=== PATIENT | female | born 1950 | race African-American/Black ===

== ENCOUNTER → 2017-07-28 | Outpatient (CLI) | payer OTHER ==
[~2017-07-28] MED LIST: ACCUNEB SO1.25 MG/1; ALBUTEROL2.5 MG/31 INH; ASPIR 8181 MG PO; ASPIRIN81 M2; AVAPRO 150 MG150 M1 PO; CARISOPRODOL 3350 MG PO; DILTIAZEM 24HR360 M1 PO; DILTIAZEM ER240 M1; DULERA 100 MCG/13 GM; DULERA 200 MCG/13 GM INH; FELDENE20 MG PO; HYDROCHLOROTHIA25 M1 PO; HYDROCODONE-AP1 EAC6 PO; HYZAAR 100-251 EACH PO; IMITREX100 MG PO; PANTOPRAZOLE SO40 M1 PO; POTASSIUM CHLO10 ME1 PO; PREDNISONE 5 MG5 M1 PO; SYNTHROID150 MCG PO; VENTOLIN HFA 1818 GM INH; XANAX 0.5 MG0.5 MG PO; ZOFRAN ODT4 MG PO
== END ==
LOC: RAD 00:25
DX: Z12.31 Encounter for screening mammogram for malignant neoplasm of breast (principal)

== ENCOUNTER → 2017-08-27 | Outpatient (CLI) | payer OTHER | LOC: CAT 11:02 | DX: G31.9 Degenerative disease of nervous system, unspecified (principal) ==

== ENCOUNTER 2017-12-01 05:37 | Inpatient (IN) | payer OTHER ==
[~2017-12-01] VITALS: Ht 165.1 cm; Wt 82.6 kg
--- NOTE | ~2017-12-01 | O ---
[facility] [place] [address] OPERATIVE REPORT Name: SHARYN AGUILAR Room #: 431-P [facility] IN M.R.#: [id number] Admission: 12/01/17 Attend Phys: Van Alston MD Discharge: Date of : 48 Report #: [id number] THIS REPORT FOR: //name// CC: FAM unknown Van Alston DATE OF SERVICE: 12/01/2017 PREOPERATIVE DIAGNOSIS: Right hip osteoarthritis. POSTOPERATIVE DIAGNOSIS: Right hip osteoarthritis. PROCEDURE: Right total hip arthroplasty. SURGEON: Van Alston MD PEANUT SEPARATOR: MAGO [place] ANESTHESIA: General endotracheal. IMPLANTS: [employer]haliwal [employer] Nephew size 13 standard offset Synergy press-fit stem, a size 52 R3 acetabular cup with a size 36 +0 cobalt chrome head. ESTIMATED BLOOD LOSS: 100 mL. COMPLICATIONS: None. SPECIMENS: None. CONDITION UPON LEAVING THE OPERATING ROOM: Stable. INDICATIONS FOR PEANUT SEPARATOR: Throughout the case, extensive retraction and manipulation of the hip was required. This was afforded to me by my ortho assistant. INDICATION FOR PROCEDURE: The patient is a 67-year-old female with severe right hip osteoarthritis. She had failed conservative treatment for this and after discussion with her, she elected for right total hip arthroplasty. DESCRIPTION OF OPERATIVE PROCEDURE: Risks, benefits, alternatives, complications were discussed in detail with the patient including but not limited to risk of anesthesia; risk of damage to nerves, arteries, blood vessels; risk for infection, bleeding; risk for instability, leg length discrepancy, dislocation and need for reoperation. Informed consent was obtained from the patient. The right hip was appropriately marked in the preoperative holding area. IV Ancef was given for preoperative antibiotics. She was brought to the operating room and placed in the supine position on [facility] [address] [place] [address] OPERATIVE REPORT Name: JEFFSHARYN VILA Room #: 431-P [facility] IN M.R.#: [id number] Admission: 12/01/17 Attend Phys: Van Alston MD Discharge: Date of : 48 Report #: [id number] operating room table. General endotracheal anesthesia was induced without complication. She was then placed in the left lateral decubitus position with the right hip uppermost. Right hip and lower extremity were prepped and draped in normal sterile fashion. Timeout was performed properly identifying the patient and procedure as well as the instrumentation and implants. All in the operating room were in agreement. Right hip and lower extremity were prepped and draped in normal sterile fashion. A standard posterior approach to the hip was made with a 10 blade through the skin. Dissection was taken down the fascia with Bovie cautery and a Rebollar elevator was used to clean off the fascia. Fresh 10 blade was used to make a fascial incision. This was taken proximally and distally with curved White scissor. Charnley retractor was placed. Trochanteric bursa was taken down with Bovie cautery. The piriformis tendon was identified, tagged and taken down with Bovie. Short external rotators were also taken down with Bovie cautery. Capsulotomy was made and capsule ends were tagged for later repair. Hip was dislocated and there was extensive osteoarthritic change of the femoral head. Femoral neck cut was made 1 cm proximal to lesser trochanter based on preoperative templating and the femoral head was removed. Deep acetabular retractors were placed. Labrum was removed sharply. Pulvinar was removed with Bovie cautery. Acetabulum was then sequentially reamed up to a size 52; at which point, there was excellent bleeding cancellous bone. This was trialed with a size 51 cup trial and found to have a good fit. A final size 52 R3 acetabular cup was then placed and seated. One acetabular screw was placed for backup fixation and the polyethylene liner for 36 head was placed. Attention was then turned to the femur. This was reamed and broached up to a size 13; at which point, the size 13 broach was stable. This was trialed with a standard offset neck with a 36 +0 head. Hip was reduced, taken through range of motion, found to be stable, found to have equal leg lengths. Hip was dislocated and the broach was removed. The final size 13 standard offset Synergy press-fit stem was placed. This was then trialed with a 36 +0 head. Hip was reduced, taken through range of motion, found to be stable, found to have equal leg lengths. Hip was dislocated one last time and a final size 36 +0 cobalt chrome head was placed. Hip was reduced, taken through range of motion, found to be stable, found to have equal leg lengths. Periarticular injection consisting of morphine, ropivacaine, epinephrine and Toradol was placed around the hip joint and tissues. A gram of vancomycin was placed deep in the hip joint. The piriformis and capsule were repaired with 0 FiberWire. Fascia was closed with 0 Vicryl, skin was closed with 2-0 Vicryl, 3-0 Monocryl and a TERRY dressing was applied. The patient tolerated this procedure well and went to the recovery room under the care of Anesthesia postoperatively. <ELECTRONICALLY SIGNED> By: Van Alston MD 12/04/17 0822 [id number] 1724 Van Alston MD /nt
[2017-12-01 11:15] VITALS: BP 132/93
[2017-12-01 18:00] VITALS: BP 127/85
[2017-12-01 20:51] VITALS: BP 125/85
[2017-12-02 05:40] LABS: HEMATOCRIT 30.4 % (37.0-47.0); HEMOGLOBIN 10.1 gm/dL (12.0-15.0); MCH 28.3 pg (26.0-34.0); MCHC 33.2 g/dL (28.0-37.0); MCV 85.2 fL (80.0-100.0); RBC 3.56 mil/uL (4.20-5.00); RDW 13.3 % (10.5-14.5); WBC 8.7 thou/uL (4.0-11.0)
[2017-12-02 05:44] VITALS: BP 111/67
[2017-12-02 07:14] VITALS: BP 113/69
[2017-12-02 15:27] VITALS: BP 111/72
[2017-12-02 20:00] VITALS: BP 112/68
[2017-12-03 04:28] VITALS: BP 115/75
[2017-12-03 06:03] LABS: HEMATOCRIT 26.6 % (37.0-47.0); HEMOGLOBIN 9.2 gm/dL (12.0-15.0); MCH 28.5 pg (26.0-34.0); MCHC 34.5 g/dL (28.0-37.0); MCV 82.5 fL (80.0-100.0); RBC 3.22 mil/uL (4.20-5.00); RDW 13.4 % (10.5-14.5); WBC 7.2 thou/uL (4.0-11.0)
[2017-12-03 07:30] VITALS: BP 110/70
[2017-12-03 16:12] VITALS: BP 97/55
[2017-12-03 20:38] VITALS: BP 110/59
[2017-12-04 04:24] VITALS: BP 102/66
[2017-12-04 05:34] LABS: HEMATOCRIT 25.9 % (37.0-47.0); MCH 28.9 pg (26.0-34.0); MCHC 34.6 g/dL (28.0-37.0); MCV 83.6 fL (80.0-100.0); RBC 3.1 mil/uL (4.20-5.00); RDW 13.2 % (10.5-14.5)
[2017-12-04 10:25] VITALS: BP 110/70
[2017-12-04 11:06] VITALS: BP 110/70
== END 2017-12-04 12:58 | disposition home or self-care (01) | DRG 470 ==
LOC: 4E 05:37 → TBA 05:37 → PRE 05:39 → EDSTATUS 13:12 → OR 13:12 → PRE 13:14 → 4E 18:01
PROVIDERS: Orthopaedic Surgery
PROC: 0SR901A Replacement of Right Hip Joint with Metal Synthetic Substitute, Uncemented, Open Approach (ICD-10-PCS; principal; 2017-12-01)
DX: M16.11 Unilateral primary osteoarthritis, right hip (principal)
CPT/HCPCS: 10783; 50010; 50101; 50382; 50414; 51771; 53000; 53078; 53367; 54118; 56524; 56527; 56528; 56530; 57095; 62110; 62900; 70005

== ENCOUNTER → 2018-07-29 | Outpatient (CLI) | payer OTHER | LOC: RAD 10:29 | DX: Z12.31 Encounter for screening mammogram for malignant neoplasm of breast (principal) ==

== ENCOUNTER → 2018-09-08 | Outpatient (CLI) | payer OTHER ==
[~2018-09-08] VITALS: Ht 165.1 cm; Wt 80.7 kg
[~2018-09-08] MED LIST changes: +BREO ELLIPTA 11 EACH INH; +LIPITOR10 MG PO
--- NOTE | 2018-09-09 08:14 | P ---
[facility] [place] [address] PROCEDURE REPORT Name: JEFFSHARYN VILA Room #: REG [facility]#: [id number] Admission: 09/08/18 ������������������ Attend Phys: Dex Espinoza MD Discharge: ������������������ Date of : 48 Report #: [id number] THIS REPORT FOR: //name// CC: Lj Baker DO Dex Espinoza BRIEF HISTORY: The patient is a 68-year-old woman for average-risk screening colonoscopy. Last colon exam was approximately 10 years ago. PREOPERATIVE DIAGNOSIS: Average-risk screening colonoscopy. POSTOPERATIVE DIAGNOSES: 1. Moderate sigmoid diverticulosis coli. 2. Internal hemorrhoids. MEDICATIONS: Deep sedation with propofol per anesthesia. SPECIMENS: None. ESTIMATED BLOOD LOSS: None. PROCEDURE: Colonoscopy to cecum and terminal ileum. FINDINGS: Prior to propofol sedation, the procedure of colonoscopy was reviewed with the patient as well as potential risks and its complications. She indicates she understands and desires to proceed. DESCRIPTION OF PROCEDURE: With the patient in the left lateral decubitus position, digital examination was completed, which revealed no abnormalities. Subsequently, the Olympus video colonoscope was introduced in the rectum, advanced under direct vision to the cecum. Done with minimal difficulty. The cecum was identified by the ileocecal valve and the appendiceal orifice. I was able to advance the tip of the scope to the mouth of the ileocecal valve. However, due to looping of the scope, I could not cross the ileocecal valve. Villi were seen. At that point, the scope was slowly withdrawn and careful circumferential views were obtained. Upon slow withdrawal of the scope, the prep was excellent. The mucosa was within normal limits. Normal vascular pattern, normal light reflex. No inflammatory neoplastic changes were seen. A few scattered diverticula were seen in the proximal colon. There was no endoscopic evidence of diverticulitis. The scope was withdrawn. Throughout the remainder of the colon, there was noted to be again normal mucosa. There was moderate diverticular disease in the sigmoid colon, without endoscopic evidence of diverticulitis. The scope was withdrawn in the rectum. No abnormalities were seen. Upon retroflexion, small internal hemorrhoids were seen. The scope was withdrawn. The patient tolerated the procedure well. [facility] [address] [place] [address] PROCEDURE REPORT Name: SHARYN AGUILAR Room #: REG [facility]#: [id number] Admission: 09/08/18 ������������������ Attend Phys: Dex Espinoza MD Discharge: ������������������ Date of : 48 Report #: [id number] CONDITION OF THE PATIENT UPON DISCHARGE: Following the procedure, the patient drowsy, aroused, conversant and will be discharged home when fully ambulatory. INSTRUCTIONS TO THE PATIENT AND FAMILY AT THE TIME OF DISCHARGE: No neoplastic changes were seen. She does not have history of colon polyps nor is her family history. She is considered average risk and suggest followup colon exam in 10 years. In addition, the patient was noted to have melanosis on her last exam. She notes that since the last colonoscopy, she has been using fiber and MiraLax with good results. There was no evidence of melanosis on today's exam. Last colonoscopy was nearly 10 years ago. Withdrawal time from the cecum was 9 minutes and 19 seconds. ��������������������������������������������� <ELECTRONICALLY SIGNED> ���������������������������������������� By: Dex Espinoza MD ��������������������������������������������� 09/09/18 0814 0917 0003 Dex Espinoza MD /nt
== END | disposition home or self-care (01) ==
LOC: GI 07:15 → RAD 13:29
DX: Z12.11 Encounter for screening for malignant neoplasm of colon (principal); K57.30 Diverticulosis of large intestine without perforation or abscess without bleeding; K64.8 Other hemorrhoids; I10 Essential (primary) hypertension; E78.00 Pure hypercholesterolemia, unspecified; J45.909 Unspecified asthma, uncomplicated; G43.909 Migraine, unspecified, not intractable, without status migrainosus; K21.9 Gastro-esophageal reflux disease without esophagitis; Z96.651 Presence of right artificial knee joint; Z90.49 Acquired absence of other specified parts of digestive tract; Z96.641 Presence of right artificial hip joint; Z79.899 Other long term (current) drug therapy; Z98.890 Other specified postprocedural states
CPT/HCPCS: 62110; 62900

== ENCOUNTER → 2019-07-31 | Outpatient (CLI) | payer OTHER | LOC: RAD 08:40 | DX: Z12.31 Encounter for screening mammogram for malignant neoplasm of breast (principal); N64.89 Other specified disorders of breast ==

== ENCOUNTER 2019-12-13 20:26 | Emergency (ER) | payer OTHER ==
[~2019-12-13] VITALS: Ht 165.1 cm; Wt 84.8 kg
[2019-12-13 20:32] VITALS: BP 146/89
== END 2019-12-13 22:39 | disposition home or self-care (01) ==
LOC: ER 20:26
DX: S93.512A Sprain of interphalangeal joint of left great toe, initial encounter (principal); I10 Essential (primary) hypertension; J45.909 Unspecified asthma, uncomplicated; K21.9 Gastro-esophageal reflux disease without esophagitis; G43.909 Migraine, unspecified, not intractable, without status migrainosus; Z79.899 Other long term (current) drug therapy; Z90.49 Acquired absence of other specified parts of digestive tract; Z90.89 Acquired absence of other organs; W23.0XXA Caught, crushed, jammed, or pinched between moving objects, initial encounter; Y93.89 Activity, other specified; Y92.89 Other specified places as the place of occurrence of the external cause; Y99.8 Other external cause status

== ENCOUNTER → 2020-08-01 | Outpatient (CLI) | payer OTHER | LOC: BC 09:28 | PROVIDERS: ATTEND Obstetrics & Gynecology | DX: Z12.31 Encounter for screening mammogram for malignant neoplasm of breast (principal) ==

== ENCOUNTER → 2021-02-20 | Outpatient (CLI) | payer OTHER | LOC: CAT 08:23 | PROVIDERS: ATTEND Family Medicine | DX: Z13.6 Encounter for screening for cardiovascular disorders (principal); I25.10 Atherosclerotic heart disease of native coronary artery without angina pectoris ==

== ENCOUNTER → 2021-02-25 | Outpatient (CLI) | payer OTHER | LOC: SJCVC 10:07 | PROVIDERS: ATTEND Internal Medicine Cardiovascular Disease | DX: R94.31 Abnormal electrocardiogram [ECG] [EKG] (principal); I11.9 Hypertensive heart disease without heart failure; R93.1 Abnormal findings on diagnostic imaging of heart and coronary circulation; R06.00 Dyspnea, unspecified; E78.00 Pure hypercholesterolemia, unspecified; R60.9 Edema, unspecified; Z79.899 Other long term (current) drug therapy; Z79.82 Long term (current) use of aspirin ==

== ENCOUNTER 2021-03-18 20:45 | Emergency (ER) | payer OTHER ==
[~2021-03-18] VITALS: Ht 165.1 cm; Wt 82.6 kg
[2021-03-18 21:19] LABS: ABSOLUTE NEUTROPHILS 6.6 thou/uL (1.4-8.2); BASOPHILS 0.5 % (0.0-2.0); EOSINOPHILS 1.7 % (0.0-3.0); HEMATOCRIT 35.6 % (37.0-47.0); HEMOGLOBIN 11.4 gm/dL (12.0-15.0); LYMPHOCYTES 20.6 % (24.0-44.0); MCH 27.4 pg (26.0-34.0); MCHC 31.9 g/dL (28.0-37.0); MCV 85.8 fL (80.0-100.0); MONOCYTES 7.2 % (1.0-8.0); PLATELET COUNT 290 thou/uL (150-400); RBC 4.15 mil/uL (4.20-5.00); RDW 13.8 % (10.5-14.5); WBC 9.4 thou/uL (4.0-11.0)
[2021-03-18 21:28] LABS: CALCIUM 8.8 mg/dL (8.5-10.1); CREATININE 1.5 mg/dL (0.6-1.0); POTASSIUM 3.3 mmol/L (3.5-5.1)
[2021-03-18 21:37] LABS: ALBUMIN 3.7 g/dL (3.4-5.0); TOTAL BILIRUBIN 0.3 mg/dL (0.2-1.0); TOTAL PROTEIN 7.5 g/dL (6.4-8.2)
[2021-03-18 22:55] VITALS: BP 151/67
--- NOTE | 2021-03-19 06:50 | EKG ---
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1950 Requested By: Amor Shahid Order Number: [id number] MD: Pedro Cruz Measurements Intervals [place] Rate: 60 P: 47 CO: 178 QRS: -58 QRSD: 99 T: 37 QT: 479 QTc: 479 Interpretive Statements Sinus rhythm Left anterior fascicular block Abnormal R-wave progression, early transition Probable left ventricular hypertrophy Borderline T abnormalities, anterior leads Compared to ECG 09/11/2008 11:17:14 No significant changes Electronically Signed On 03-19-2021 6:50:39 CDT by Pedro Cruz [email or web address] <ELECTRONICALLY SIGNED> By: Pedro Cruz MD, [facility] 03/19/21 0650 56 56 Pedro Cruz MD, [facility] /EPI
--- NOTE | 2021-03-20 07:21 | EKG ---
[facility] [place] [address] ELECTROCARDIOGRAM REPORT Name: SHARYN AGUILARH 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 : 1950 Requested By: Amor Shahid Order Number: [id number] MD: Pedro Cruz Measurements Intervals [place] Rate: 63 P: 36 MD: 177 QRS: -56 QRSD: 100 T: 20 QT: 474 QTc: 486 Interpretive Statements Sinus rhythm Ventricular premature complex Abnormal R-wave progression, early transition Probable left ventricular hypertrophy Borderline T abnormalities, anterior leads Baseline wander in lead(s) V2 Compared to ECG 09/11/2008 11:17:14 Ventricular premature complex(es) now present T-wave abnormality still present Electronically Signed On 03-20-2021 7:21:41 CDT by Pedro Cruz [email or web address] <ELECTRONICALLY SIGNED> By: Pedro Cruz MD, [facility]ACC 03/20/21720 55 55 Pedro Cruz MD, FAC /EPI
== END 2021-03-18 22:57 | disposition short-term general hospital (02) ==
LOC: ER 20:45
PROVIDERS: Emergency Medicine
DX: I71.01 Dissection of thoracic aorta (principal); I10 Essential (primary) hypertension; J45.909 Unspecified asthma, uncomplicated; G43.909 Migraine, unspecified, not intractable, without status migrainosus; K21.9 Gastro-esophageal reflux disease without esophagitis; Z90.89 Acquired absence of other organs; Z90.49 Acquired absence of other specified parts of digestive tract; Z98.890 Other specified postprocedural states; Z79.82 Long term (current) use of aspirin; Z79.51 Long term (current) use of inhaled steroids; Z79.891 Long term (current) use of opiate analgesic; Z79.899 Other long term (current) drug therapy; Z79.1 Long term (current) use of non-steroidal anti-inflammatories (NSAID)

== ENCOUNTER → 2021-04-21 | Outpatient (CLI) | payer OTHER | LOC: SJCVC 13:23 | PROVIDERS: ATTEND Internal Medicine Cardiovascular Disease | DX: R94.31 Abnormal electrocardiogram [ECG] [EKG] (principal); I71.9 Aortic aneurysm of unspecified site, without rupture; I71.00 Dissection of unspecified site of aorta; I10 Essential (primary) hypertension; E78.00 Pure hypercholesterolemia, unspecified; R60.9 Edema, unspecified; R06.00 Dyspnea, unspecified; R93.1 Abnormal findings on diagnostic imaging of heart and coronary circulation; Z98.890 Other specified postprocedural states; Z88.8 Allergy status to other drugs, medicaments and biological substances; Z79.82 Long term (current) use of aspirin; Z79.899 Other long term (current) drug therapy; J45.909 Unspecified asthma, uncomplicated; K21.9 Gastro-esophageal reflux disease without esophagitis; E78.5 Hyperlipidemia, unspecified; I44.4 Left anterior fascicular block ==

== ENCOUNTER → 2021-05-05 | Outpatient (CLI) | payer OTHER ==
[~2021-05-05] MED LIST changes: +LEVO-T100 MCG PO; +MIRALAX119 GM PO
== END ==
LOC: SJCVCIMAG 14:17
PROVIDERS: ATTEND Internal Medicine Cardiovascular Disease
DX: I71.00 Dissection of unspecified site of aorta (principal); I71.9 Aortic aneurysm of unspecified site, without rupture; I10 Essential (primary) hypertension; R60.9 Edema, unspecified; R93.1 Abnormal findings on diagnostic imaging of heart and coronary circulation; M19.90 Unspecified osteoarthritis, unspecified site; K21.9 Gastro-esophageal reflux disease without esophagitis; K44.9 Diaphragmatic hernia without obstruction or gangrene; E78.5 Hyperlipidemia, unspecified; Z98.890 Other specified postprocedural states; Z79.82 Long term (current) use of aspirin; Z79.899 Other long term (current) drug therapy

== ENCOUNTER 2021-05-07 05:42 | Inpatient (IN) | payer OTHER ==
[~2021-05-07] VITALS: Ht 165.1 cm; Wt 77.1 kg
[~2021-05-07 05:42] MED LIST changes: -LEVO-T100 MCG PO; -MIRALAX119 GM PO
[2021-05-07 06:09] VITALS: BP 151/101
[2021-05-07 06:45] LABS: ABSOLUTE NEUTROPHILS 4.2 thou/uL (1.4-8.2); BASOPHILS 0.7 % (0.0-2.0); EOSINOPHILS 0.4 % (0.0-3.0); HEMATOCRIT 29.1 % (37.0-47.0); HEMOGLOBIN 9.6 gm/dL (12.0-15.0); LYMPHOCYTES 14.5 % (24.0-44.0); MCH 28.9 pg (26.0-34.0); MCHC 32.9 g/dL (28.0-37.0); MCV 87.9 fL (80.0-100.0); MONOCYTES 7.1 % (1.0-8.0); PLATELET COUNT 328 thou/uL (150-400); POLYS 77.3 % (36.0-66.0); RBC 3.31 mil/uL (4.20-5.00); RDW 15.5 % (10.5-14.5); WBC 5.4 thou/uL (4.0-11.0)
[2021-05-07 06:52] LABS: CALCIUM 8.9 mg/dL (8.5-10.1); CREATININE 0.9 mg/dL (0.6-1.0); POTASSIUM 3.6 mmol/L (3.5-5.1)
[2021-05-07 07:03] LABS: ALBUMIN 3.3 g/dL (3.4-5.0); MAGNESIUM 1.5 mg/dL (1.8-2.4); TOTAL BILIRUBIN 0.6 mg/dL (0.2-1.0); TOTAL PROTEIN 7.5 g/dL (6.4-8.2)
--- NOTE | 2021-05-07 07:20 | EKG ---
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 : 1950 Requested By: Lj Hughes Order Number: [id number] MD: Pedro Cruz Measurements Intervals [place] Rate: 95 P: 53 NH: 152 QRS: -57 QRSD: 116 T: 57 QT: 417 QTc: 525 Interpretive Statements Sinus rhythm Probable left atrial enlargement Nonspecific IVCD with LAD Inferior infarct, old Abnrm T, consider ischemia, anterolateral lds Compared to ECG 03/18/2021 20:57:30 Intraventricular conduction delay now present Myocardial infarct finding now present Possible ischemia now present Left anterior fascicular block no longer present T-wave abnormality no longer present Electronically Signed On 05-07-2021 7:20:34 [employer] by Pedro Cruz [email or web address] <ELECTRONICALLY SIGNED> By: Pedro Cruz MD, FACC 05/07/21 0720 0555 0555 Pedro Cruz MD, [facility] /EPI
[2021-05-07 09:03] LABS: URINE BILIRUBIN NEGATIVE (Negative); URINE BLOOD TRACE (Negative); URINE CLARITY CLEAR; URINE COLOR YELLOW; URINE GLUCOSE-RANDOM* NEGATIVE (Negative); URINE KETONES NEGATIVE (Negative); URINE NITRITE-REFLEX NEGATIVE (Negative); URINE PROTEIN (DIPSTICK) 1+ (Negative); URINE UROBILINOGEN 0.2 E.U./dl (0.2-1.0)
[2021-05-07 09:04] LABS: URINE LEUKOCYTES-REFLEX 1+ (Negative)
[2021-05-07 09:35] LABS: BACTERIA-REFLEX 1-9 Few /HPF (None Seen); CASTS None Seen /LPF (None Seen); SQUAMOUS 4-10 Moderate /LPF (0-3); URINE RBC 1-2 Rare /HPF (NONE SEEN); URINE WBC-REFLEX 0-5 Rare /HPF (0-5)
[2021-05-07 09:36] LABS: CRYSTALS None Seen /LPF (None Seen)
[2021-05-07 12:41] VITALS: BP 138/86
[2021-05-07 16:10] VITALS: BP 144/93
[2021-05-07 19:58] VITALS: BP 147/95
[2021-05-07 20:39] VITALS: BP 142/90
[2021-05-07 21:46] VITALS: BP 145/98
[2021-05-08 06:12] LABS: CALCIUM 8.4 mg/dL (8.5-10.1); CREATININE 1.2 mg/dL (0.6-1.0); POTASSIUM 3.8 mmol/L (3.5-5.1)
[2021-05-08 06:14] LABS: HEMATOCRIT 28.4 % (37.0-47.0); HEMOGLOBIN 9.2 gm/dL (12.0-15.0); MCH 28.6 pg (26.0-34.0); MCHC 32.3 g/dL (28.0-37.0); MCV 88.5 fL (80.0-100.0); RBC 3.2 mil/uL (4.20-5.00); RDW 15.6 % (10.5-14.5); WBC 6.2 thou/uL (4.0-11.0)
--- NOTE | 2021-05-08 06:44 | NUR ---
PATIENT ADMITTED FOR NAUSEA AND VOMIT. PATIENT AOX4 MAKES NEEDS KNOWN. PATIENT NEEDS MINIMUM ASSISTANCE WITH ADL, BED MOBILITY, TRANSFER AND TOILETING.PAIN, NAUSEA AND VOMIT CONTROLLED THIS SHIFT. PATIENT AMBULATES SLOWLY SLOWLY WITH STABLE GAITS. FALL PRECAUTION IN PLACE.PATIENT IN BED ASLEEP AT THIS TIME BREATHING REGULAR AND UNLABOURED.
[2021-05-08 07:58] VITALS: BP 136/80
--- NOTE | 2021-05-08 15:21 | NUR ---
PT ADMITTED RELATED TO N/V, ABDOMINAL PAIN, AND DEHYDRATION. CM REVIEWED CHART AND SPOKE WITH CARE TEAM. CM MET WITH PT AT BEDSIDE THIS DAY. PT APPEARD TO BE A&O X4. CM ROLE INTRODUCED. PT INDICATED SHE RESIDES IN A HOUSE WITH HER SPOUSE. PT INDICATED NO STEPS INSIDE OR OUTSIDE OF THE HOME. 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 HER HELPS WITH CARES AND HER CHILDREN FIX MEALS. PATIENT INDICATED A RECENT PREVIOUS HOSPITAL STAY DISCHARGE WITH HH BUT DOES NOT REMEMBER THE NAME OF THE COMPANY. PT INDICATED SHE PLANS TO RETURN HOME ONCE MEDICALLY STABLE AND WISHED TO RESUME HH SERVICES. CM FOLLOWING REGARDING DC PLANNING.
[2021-05-08 16:55] VITALS: BP 135/98
[2021-05-08 20:06] VITALS: BP 150/98
--- NOTE | 2021-05-09 03:17 | NUR ---
PAIN AND NAUSEA CONTROLLED THIS SHIFT. PATIENT REQUESTED TO SLEEP ON THE RECLINER. FALL PRECAUTION IN PLACE. PATIENT IN BED ASLEEP AT THIS TIME BREATHING REGULAR AND UNLABOURED.
[2021-05-09 07:00] VITALS: BP 146/100
[2021-05-09] MEDS ORDERED: LEVO-T100 MCG PO (11:49)
[2021-05-09] MEDS ORDERED: MIRALAX119 GM PO (11:56)
--- NOTE | 2021-05-09 16:34 | NUR ---
CARE TEAM INDICATED PT MAY BE MEDICALLY STABLE TO DC OVER WEEKEND. PT NEEDS TO TOLERATE DIET PTD. PT HAD BEEN ON SERVICE WITH [facility] STAFF DEVELOPMENT NURSE. PT TO RESUME SERVICES WITH THEM UPON DC. THEY ARE AWARE OF ADMISSION AND CLINICAL INFO FAXED. ONCE PT IS DC READY FAX ORDERS TO: [facility] AT .
[2021-05-09 20:05] VITALS: BP 132/97
--- NOTE | 2021-05-10 04:23 | NUR ---
assumed care approx 1900 evening 05/09. pt alert and oriented x4, appropriate and cooperative. pt up to bsc to have bm x2 tonight. pt appears to be sleeping soundly. bed alarm on and call light in reach. will continue to monitor.
[2021-05-10 08:07] VITALS: BP 140/98
[2021-05-10 09:47] VITALS: BP 140/98
--- NOTE | 2021-05-10 18:12 | NUR ---
Pt A & O x4. Pt is SBA with cares and ADLs. Pt received medications as ordered. Pt VS stable. Pt is room air. Pt received PRN medications per pt request. Pt is able to make needs known
[2021-05-10 20:59] VITALS: BP 142/78
--- NOTE | 2021-05-11 03:55 | NUR ---
PT IS A/O X4 AND IS UP WITH ASSISTANCE TO THE BSC. ROOM AIR. VSS AFEBRILE. C/O PAIN. PRN PAIN MEDICATION GIVEN DIRECTED. NPO SINCE MIDNIGHT AWAITING PROCEDURE IN THE AM. FALL PRECAUTIONS IN PLACE, CALL LIGHT IS WITHIN REACH.
[2021-05-11 08:14] VITALS: BP 141/98
[2021-05-11 16:53] LABS: HEMATOCRIT 29.9 % (37.0-47.0); HEMOGLOBIN 9.5 gm/dL (12.0-15.0); MCH 28.1 pg (26.0-34.0); MCHC 31.8 g/dL (28.0-37.0); MCV 88.3 fL (80.0-100.0); RBC 3.39 mil/uL (4.20-5.00); RDW 15.8 % (10.5-14.5); WBC 8.3 thou/uL (4.0-11.0)
[2021-05-11 17:07] LABS: INR 1.45; PROTIME 15.5 Seconds (10.5-12.1)
[2021-05-11 17:08] LABS: ALBUMIN 3.3 g/dL (3.4-5.0); CALCIUM 8.4 mg/dL (8.5-10.1); CREATININE 1.2 mg/dL (0.6-1.0); TOTAL BILIRUBIN 0.9 mg/dL (0.2-1.0); TOTAL PROTEIN 6.9 g/dL (6.4-8.2)
[2021-05-11 17:18] VITALS: BP 133/83
[2021-05-11 17:19] VITALS: BP 133/83
--- NOTE | 2021-05-11 18:21 | NUR ---
Resummed care from overnight shift this am. Client was in room sitting on chair and resting. Client's daughter was present in room visiting at this time. Client presented calm and quiet and was alert and oriented x4. Client stated no pain upon initial assessment and took all medications whole. Later voiced general abdominal pain at 1645. PRN tylenol given for this which decreased pain to 0/10. Client IV site was intact and no redness of edema noted. Client given IV push furosemide by Morenita CRAFT this am in addition to scheduled medications. All medications tolerated well. Client is to be NPO after midnight- has been notified of this. Client has no concerns at this time.
[2021-05-11 21:04] VITALS: BP 119/76
--- NOTE | 2021-05-12 03:18 | NUR ---
ASSUMED CARE AT 1900, PT REMAINS ON RT THERAPY, REPORTS EXCESSIVE SPUTUM WITH COUGHING, NPO AFTER MIDNIGHT, COMPLIANT TO TX, NO ADVERSE REACTION NOTED, TOILETED NEEDED, INTERMITTENTLY SLEPT THROUGH THE NIGHT, WILL CONTINUE TO MONITOR.
[2021-05-12 08:17] VITALS: BP 140/87
[2021-05-12 12:00] LABS: HEMATOCRIT 29.7 % (37.0-47.0); HEMOGLOBIN 9.4 gm/dL (12.0-15.0); MCH 28.3 pg (26.0-34.0); MCHC 31.8 g/dL (28.0-37.0); MCV 88.9 fL (80.0-100.0); RBC 3.34 mil/uL (4.20-5.00); WBC 7.8 thou/uL (4.0-11.0)
--- NOTE | 2021-05-12 13:47 | NUR ---
ASSUMED PT CARE THIS AM. PT A&O4, ABLE TO MAKE NEEDS KNOWN. PATIENT REPORTING BACK PAIN, NEW PAIN MEDICATION ORDERED PER EMAR. IV REMAINS PATENT. POTASSIUM WAS LOW, PHYSICIAN NOTIFIED AND ORDER RECEIVED FOR IV POTASSIUM REPLACEMENT. PATIENT IS ON ROOM AIR. PATIENT IS ON ROOM AIR. FALL PRECAUTIONS ARE IN PLACE, CALL LIGHT WITHIN REACH.
[2021-05-12 17:38] VITALS: BP 133/91
[2021-05-12 19:42] VITALS: BP 130/82
--- NOTE | 2021-05-13 04:58 | NUR ---
ASSUMED PT CARE THIS PM.PT IS ALERT AND ORIENTED X4. PT WAS INFORNED ABOUT BEING NPO VERBALIZED UNDERSTANDING. PT HAS TRACE EDMA ON FEET. MEDS WERE GIVEN ORDERS. PT IS ON RA. FALL PRECAUTIONS IN PLACE. WILL CONTINUE TO NONITOR,
[2021-05-13 06:42] LABS: ALBUMIN 2.8 g/dL (3.4-5.0); CALCIUM 8.2 mg/dL (8.5-10.1); MAGNESIUM 1.7 mg/dL (1.8-2.4); POTASSIUM 3.8 mmol/L (3.5-5.1); TOTAL PROTEIN 6.5 g/dL (6.4-8.2)
[2021-05-13 09:08] LABS: HAV IgM AB (ANTI-HAV IgM) Negative (Negative); HEPATITIS B SURFACE AG Negative (Negative)
--- NOTE | 2021-05-13 14:08 | NUR ---
ASSUMED PT CARE THIS AM. PT HAD EGD THIS AM. PT IS ALERT & ORIENTED X4. PT HAS IV SITE ON LAC SALINE LOCKED. PT IS UP WITH ASSIST X1 TO THE BEDSIDE COMMODE. PT AT THE BEDSIDE. PT IS CURRENTLY EATING LUNCH ON THE BED, BED ON THE LOWEST POSITION, SIDE RAILS UP, CALL LIGHT WITHIN REACH. WILL CONTINUE TO MONITOR PT. FOLLOW POC.
[2021-05-13 14:14] VITALS: BP 140/98
--- NOTE | 2021-05-13 16:51 | NUR ---
PT HAD EGD DONE THIS DAY. HOSPITALIST INDICATED THAT PT IS MEDICALLY STABLE TO DC HOME THIS DAY. VENANCIO VELASCO MET WITH PT AND SPOUSE AT BEDSIDE THIS DAY AND INDICATED THE ABOVE. THEY INDICATED THAT PHYSICIAN INDICATED THAT PT WOULD BE STARTED ON ABX AND GET A LAXATIVE AND THAT THEY WEREN'T ANTICIAPTING DC HOME THIS DAY. THIS WAS CONVEYED TO HOSPITALIST. PT IS TO STAY ANTICIPATE POSSIBLE DC HOME TOMORROW WITH [facility].
[2021-05-13 20:01] VITALS: BP 135/89
--- NOTE | 2021-05-14 04:31 | NUR ---
ASSUMED PT CARE THIS PM. PT IS ALERT AND ORIENTED X4. PT HAS +3 EDEMA ON THE LEFT FOOT. PT C/O PAIN WHICH WAS MANAGED BY PRN PAIN MEDS. PT DID NOT C/O N/V. PT IS ON RA. MEDS GIVEN PER EMAR ORDERS. NO OTHER CONCERNS WERE VERBALIZED. FALL PRECAUTIONS IN PLACE. WILL CONTINUE TO MONITOR.
[2021-05-14 07:44] VITALS: BP 133/84
[2021-05-14 09:39] VITALS: BP 140/98
[2021-05-14 11:57] VITALS: BP 140/98
[2021-05-14 12:10] LABS: HEPATITIS C VIRUS AB <0.1
[2021-05-14 12:23] VITALS: BP 140/98
--- NOTE | 2021-05-14 13:52 | NUR ---
Assumed pt care at 7am. Pt in and out of bed with assist x1. Assessment completed.vss.Pt c/o generalized pain and requested for norco. Dr Norwood notified.order noted. Am meds given with pain med and well tolerated. Gus hose applied bilaterally for swollen feet and ankle. Dc summary compile and reviewed with pt and spouse. Saline lock dc'd.Pt left per wc at 1357 with spouse for home.
--- NOTE | 2021-05-14 14:40 | NUR ---
CARE TEAM INDICATED THAT PT IS MEDICALLY STABLE TO DC HOME THIS DAY. PT IS AWARE AND AGREEABLE. CM FAXED DC ORDERS AND SUMMERY TO [facility]. PT'S FAMILY TO PROVIDE DC TRNASPORT HOME THIS DAY. NO OTHER CM INTERVENTION INDICATED. CASE CLOSED.
--- NOTE | 2021-05-15 14:27 | HC ---
[facility] [place] [address] CONSULTATION Name: SHARYN AGUILAR Room #: 456-P [facility] IN M.R.#: [id number] Admission: 05/07/21 Attend Phys: Michael Hess MD Discharge: 05/14/21 Date of : 48 Report #: [id number] THIS REPORT FOR: cc: Lj Baker James A. DO Forman, John M. MD ~ DATE OF SERVICE: 05/12/2021 We were asked to see the patient by Dr. Norwood. HISTORY OF PRESENT ILLNESS: The patient is a 70-year-old with a recent history of resection of ascending aortic dissection in March at [facility]. The patient seems to have done reasonably well after that procedure until being admitted to this institution on 05/07/2021 with abdominal symptoms. The patient had nausea and vomiting accompanied by diarrhea. The patient also felt weak and had a poor appetite. Since admission, the patient has largely had supportive care. GI consult was obtained, but no endoscopy was done. The patient has had a CT scan of the abdomen and pelvis that shows a descending thoracic and abdominal aortic dissection, status post repair of the ascending dissection, but there does not appear to be any mal-perfusion associated with this and the radiology consult describes this as "stable." From what I can tell, there has been no evidence for ischemic bowel with unexplained acidosis or gut emptying, and the patient does not appear to have been toxic at all appearing from the chart. PAST MEDICAL HISTORY: Significant for hypertension, asthma, dyslipidemia, and hypothyroidism. HOME MEDICATIONS: Include levothyroxine, pantoprazole, aspirin, prednisone, Feldene, albuterol, Imitrex for migraines, Breo Ellipta inhaler, atorvastatin, potassium, diltiazem, irbesartan, hydrochlorothiazide, alprazolam, Soma. ALLERGIES: None known. SOCIAL HISTORY: The patient lives in an Adult Facility in [place]. She is a never smoker. REVIEW OF SYSTEMS: I agree with the review of systems as presented in the chart and have nothing to add to it. PHYSICAL EXAMINATION: VITAL SIGNS: Temperature 37.1, heart rate 102, blood pressure 140/87, O2 sat 99 on room air. [address] [address] CONSULTATION Name: SHARYN AGUILAR Room #: 456-P [facility] IN M.R.#: [id number] Admission: 05/07/21 Attend Phys: Michael Hess MD Discharge: 05/14/21 Date of : 48 Report #: [id number] HEENT: No scleral icterus. No arcus. NECK: No mass. I hear no bruit. CHEST: Clear to auscultation. HEART: Rhythm regular. Heart tones are slightly distant. ABDOMEN: Soft. Bowel sounds present. No mass, no tenderness. EXTREMITIES: Edema in the lower extremities, 1+ popliteal pulses bilaterally. Femoral pulses 2+ bilaterally. I am not sure the clinical question being asked us is, but this aorta was dissected and appears to be stable. There does not appear to be any mal-perfusion as all of the visceral vessels are fed by the true lumen and there appears to be no chemical evidence for gut ischemia. The patient was discharged from the hospital on narcotics and she took all of those and was prescribed more, and this may have played a part in the presentation. In any event, the aorta will need to be followed in the future with CT scans annual basis should the dissections become aneurysmal. However, no other further treatment appears to be warranted at this point, I have advised the patient that she should take her blood pressure once or twice a day at home on a regular basis and record this as aortic dissection is in my opinion manifestation of malignant hypertension. It is a privilege to participate in this challenging patient's care. Thank you for the consult. <ELECTRONICALLY SIGNED> By: Dex Reeves MD 05/15/21 1427 1541 2340 Dxe Reeves MD /nt
--- NOTE | 2021-05-16 10:08 | PATH ---
[facility] [place] [address] PATHOLOGY RPT PROCEDURE Name: JEFFSARAH CADENCE Room #: 456-P DIS IN M.R.#: [id number] Admission: 05/07/21 Date of : 48 Discharge: 05/14/21 Report #: [id number] Path Case #: [id number] [facility] Accession Number: [id number] . 01 Material submitted: . PART A: duodenum - DUODENAL BIOPSY R/O CELIAC PART B: stomach - ANTRUM BIOPSY R/O H. PYLORI . 01 Clinical history: . ESOPHAGOGASTRODUODENOSCOPY ABDOMINAL PAIN, N/V GASTRITIS, HIATAL HERNIA . 02 Diagnosis: A. Duodenum, biopsy: - Small bowel mucosa with preserved villous morphology. - Negative for celiac disease, peptic duodenitis or giardiasis. . B. Gastric antrum, biopsy: - Gastric antral mucosa with mild to moderate chronic active gastritis. - An H. pylori immunohistochemical stain is positive for H. pylori-like organisms. . (ANK:tiffanie; 05/15/2021) [facility] 05/15/2021 1121 Local . 02 Electronically signed: . Francy Crowe MD, Pathologist NPI- [id number] . 01 Gross description: . A. The specimen is received in formalin, labeled "Sarah Aguilar, duodenal BX-rule out celiac". Received are 2 segments of pale butterfield tissue ranging in size from 0.3 to 0.4 cm in maximum dimensions. The specimen is submitted entirely in cassette A1. . B. The specimen is received in formalin, labeled "Sarah Aguilar, antrum BX-rule out H. pylori". Received is a segment of pale butterfield tissue measuring 0.4 cm in maximum dimensions. The specimen is submitted entirely in cassette B1.([facility]; 05/14/2021) [facility] 05/14/2021 1243 Local . 02 Pathologist provided ICD-10: K29.50, R10.9, R11.2 . 02 CPT . 238625, 294107, [id number] [place] [address] PATHOLOGY RPT PROCEDURE Name: SARAH AGUILAR Room #: 456-P DIS IN M.R.#: [id number] Admission: 05/07/21 Date of : 48 Discharge: 05/14/21 Report #: [id number] Path Case #: [id number] Specimen Comment: A courtesy copy of this report has been sent to [phone], [phone] Specimen Comment: [phone], Specimen Comment: Report sent to , DR CAPUTO / DR GONZALEZ Specimen Comment: A duplicate report has been generated due to demographic updates. Performed at: [address] [facility], [place] [id number] MD Mian Jane MD Phone: [phone] Performed at: [address] [facility] [id number] MD Laxmi Nina MD Phone: [phone]
== END 2021-05-14 14:00 | disposition home health service (06) | DRG 392 ==
LOC: ER 05:42 → EROBS 09:14 → ER 09:14 → 4W 12:15 → EROBS 12:15 → 4W 21:27
PROVIDERS: Anesthesiology; Emergency Medicine; Hospitalist; Internal Medicine; ADMIT Hospitalist; ATTEND Hospitalist
PROC: 0DB78ZX Excision of Stomach, Pylorus, Via Natural or Artificial Opening Endoscopic, Diagnostic (ICD-10-PCS; principal; 2021-05-13)
PROC: 0DB98ZX Excision of Duodenum, Via Natural or Artificial Opening Endoscopic, Diagnostic (ICD-10-PCS; principal; 2021-05-13)
DX: K29.70 Gastritis, unspecified, without bleeding (principal); K56.609 Unspecified intestinal obstruction, unspecified as to partial versus complete obstruction; E44.0 Moderate protein-calorie malnutrition; K59.00 Constipation, unspecified; K44.9 Diaphragmatic hernia without obstruction or gangrene; Z96.651 Presence of right artificial knee joint; E89.0 Postprocedural hypothyroidism; J45.909 Unspecified asthma, uncomplicated; K21.9 Gastro-esophageal reflux disease without esophagitis; Z96.641 Presence of right artificial hip joint; G43.909 Migraine, unspecified, not intractable, without status migrainosus; E86.0 Dehydration; E78.5 Hyperlipidemia, unspecified; Z20.822 Contact with and (suspected) exposure to COVID-19; R53.81 Other malaise; M81.0 Age-related osteoporosis without current pathological fracture; E87.6 Hypokalemia; Z79.82 Long term (current) use of aspirin; Z79.899 Other long term (current) drug therapy
CPT/HCPCS: 10040; 62110; 62900; 70005